=== PATIENT | female | born 1960 | race Asian ===

== ENCOUNTER → 2024-02-29 06:43 | Outpatient (REF) | payer BC, SELFPAY | LOC: WDC 06:43 | PROVIDERS: ATTENDING PHYSICIAN Internal Medicine | DX: Z12.31 Encounter for screening mammogram for malignant neoplasm of breast (principal) | CPT/HCPCS: 77063; 77067 ==

== ENCOUNTER → 2025-03-04 06:54 | Outpatient (REF) | payer OTHER, SELFPAY | LOC: WDC 06:54 | PROVIDERS: ATTENDING PHYSICIAN Obstetrics & Gynecology Gynecology; FAMILY PHYSICIAN Internal Medicine | DX: Z12.31 Encounter for screening mammogram for malignant neoplasm of breast (principal) | CPT/HCPCS: 77063; 77067 ==